=== PATIENT | male | born 1990 | race Caucasian/White ===

== ENCOUNTER 2019-12-18 12:36 | Emergency (ER) | payer SELFPAY ==
--- NOTE | 2019-12-18 12:46 | EDM.PDOC ---
ED HPI GENERAL MEDICAL PROBLEM - General Chief Complaint: Eye Problems Stated Complaint: LEFT EYE FACILITIES MANAGER BURN Time Seen by Provider: 12/18/19 12:37 Source of Information: Reports: Patient History Limitations: Reports: No Limitations - History of Present Illness INITIAL COMMENTS - FREE TEXT/NARRATIVE: 29M presents for mechanic and welder's burn. patient works as a mechanic and welder. He was using goggles but admits he was not using the darkened goggles he is suppose to use and "caught a glimpse" last night. Ever since has had pain in b/l eyes L>R w/ some drainage from R eye. No concern for FBs in eye as he had goggles on. left eye Pain Score (Numeric/FACES): 2 - Related Data Allergies Allergy/AdvReac Type Severity Reaction Status Date / Time No Known Allergies Allergy Verified 12/18/19 12:55 Home Meds: Home Meds Acetaminophen/oxyCODONE [Percocet 325-5 MG] 1 each PO Q6H PRN #12 tab 12/18/19 [Rx] Erythromycin Base [Erythromycin 0.5% Ophth Oint] 1 applic .ROUTE BID 5 Days #1 tube 12/18/19 [Rx] Ibuprofen [Motrin] 600 mg PO Q6H PRN #28 tab 12/18/19 [Rx] Sertraline HCl [Zoloft] 50 mg PO DAILY 12/18/19 [History] ED ROS GENERAL - Review of Systems Review Of Systems: Comprehensive ROS is negative, except as noted in HPI. ED EXAM GENERAL W FULL EYE - Physical Exam Exam: See Below Exam Limited By: No Limitations General Appearance: Alert, WD/WN, No Apparent Distress Eye Exam: Bilateral Eye: EOMI, PERRL Eyelids: Bilateral: Other (swelling of L eyelid) Ears: Normal External Exam Nose: Normal Inspection Throat/Mouth: Normal Inspection Head: Atraumatic, Normocephalic Respiratory/Chest: No Respiratory Distress Extremities: Normal Inspection Neurological: Alert Psychiatric: Normal Affect, Normal Mood Skin Exam: Warm, Dry, Intact, Normal Color Course - Vital Signs Last Recorded V/S: Last Vital Signs Temp 98.9 F 12/18/19 12:56 Pulse 69 12/18/19 12:56 Resp 17 12/18/19 12:56 BP 119/84 12/18/19 12:56 Pulse Ox 98 12/18/19 12:56 - Re-Assessments/Exams Free Text/Narrative Re-Assessment/Exam: 12/18/19 13:23 Will tx for ultraviolet photokeratitis Departure - Departure Time of Disposition: 13:07 Disposition: Home, Self-Care 01 Condition: Good Clinical Impression: Ultraviolet keratitis of both eyes - Discharge Information Prescriptions: Erythromycin Base [Erythromycin 0.5% Ophth Oint] 1 applic .ROUTE BID 5 Days #1 tube Ibuprofen [Motrin] 600 mg PO Q6H PRN #28 tab PRN Reason: Pain Acetaminophen/oxyCODONE [Percocet 325-5 MG] 1 each PO Q6H PRN #12 tab PRN Reason: Pain Instructions: Ultraviolet Keratitis, [id number] Referrals: PCP,None [Primary Care Provider] - Forms: ED Department Discharge, ED Return to Work/School Form Additional Instructions: The following information is given to patients seen in the emergency department who are being discharged to home. This information is to outline your options for follow-up care. We provide all patients seen in our emergency department with a follow-up referral. The need for follow-up, as well as the timing and circumstances, are variable depending upon the specifics of your emergency department visit. If you don't have a primary care physician on staff, we will provide you with a referral. We always advise you to contact your personal physician following an emergency department visit to inform them of the circumstance of the visit and for follow-up with them and/or the need for any referrals to a consulting specialist. The emergency department will also refer you to a specialist when appropriate. This referral assures that you have the opportunity for follow-up care with a specialist. All of these measure are taken in an effort to provide you with optimal care, which includes your follow-up. Under all circumstances we always encourage you to contact your private physician who remains a resource for coordinating your care. When calling for follow-up care, please make the office aware that this follow-up is from your recent emergency room visit. If for any reason you are refused follow-up, please contact the [facility] Department at and asked to speak to the emergency department charge nurse. Please follow up with your primary care physician. If you do not have a primary care physician, see below: [facility] [address] [place], [place] [address] [facility] [address] [place], [place] [id number] Sepsis Event Note (ED) - Focused Exam Vital Signs: Vital Signs Temp Pulse Resp BP Pulse Ox 12/18/19 12:56 98.9 F 69 17 119/84 98
== END 2019-12-18 13:26 | disposition home or self-care (01) ==
LOC: MW.ED 12:36
DX: H16.133 Photokeratitis, bilateral (principal)
CPT/HCPCS: 99283